=== PATIENT | female | born 1975 | race Two or more races ===

== ENCOUNTER → 2024-10-14 | Outpatient (CLI) | payer OTHER, SELFPAY ==
--- NOTE | 2024-10-14 14:00 | XR_ITS ---
Examination: Screening digital mammography, bilateral Computer aided detection 3-D breast Tomosynthesis, bilateral Date and time of exam: October 14, 2024 at 1341 hours Compared to mammograms dating to January 20, 2021 Indication: Screening Technique: Nonmagnified MLO, CC views of the breasts to been obtained, reconstructed from 3-D Tomosynthesis images. R2 computer aided detection program utilized for evaluation of suspicious masses and/or abnormal calcifications. 3-D Tomosynthesis images obtained. Findings: The breasts are heterogeneously dense, which may obscure small masses 10 mm focal asymmetry inner left breast CC view 5.4 cm from the nipple Impression: BI-RADS Category 0: Incomplete: Need additional imaging evaluation 10 mm focal asymmetry inner left breast CC view, 5.4 cm the nipple Recommend follow-up spot tomographic views upper quadrant left breast, bilateral breast sonography to complete the workup
== END | disposition home or self-care (01) ==
LOC: CDIM 13:35
PROVIDERS: Referring Provider Physician Assistant; Visit Provider Physician Assistant
DX: Z12.31 Encounter for screening mammogram for malignant neoplasm of breast (principal); N64.89 Other specified disorders of breast
CPT/HCPCS: 77063; 77067

== ENCOUNTER → 2024-12-01 | Outpatient (CLI) | payer OTHER, SELFPAY ==
--- NOTE | 2024-12-01 08:30 | XR_ITS ---
Examination: Breast ultrasound, unilateral, left completely Date and time of exam: December 01, 2024 0823 hours INDICATIONS: Mammogram October 14, 2024 10 mm focal asymmetry inner left breast CC view Technique: Real-time urrutia scale ultrasonographic imaging performed left breast including all 4 quadrants as well as nipple retroareolar and axillary region. Findings: 10 x 6 mm nodule left breast 2:00 position marginated IMPRESSION: BI-RADS Category 3: Probably benign findings Recommend additional six-month follow-up left breast sonogram to document stability at 2:00 nodule described above
--- NOTE | 2024-12-01 09:00 | XR_ITS ---
Examination: Diagnostic digital mammography, unilateral, left Computer aided detection 3-D breast Tomosynthesis, unilateral Date and time of exam: 12/01/2024, 8:17 AM Comparisons: May 2021 through October 2024 Indications: Further evaluation of abnormality seen on recent screening exam. Technique: Nonmagnified MLO, CC views of the left breast have been obtained, reconstructed from 3-D Tomosynthesis images. R2 computer aided detection program utilized for evaluation of suspicious masses and/or abnormal calcifications. 3-D Tomosynthesis images obtained. Technologist: Findings: The breasts are heterogeneously dense, which may obscure small masses. No evidence of abnormal masses or suspicious calcifications. The previously described abnormality does not persist on spot compression views and represents superimposition of normal fibroglandular tissue. Impression: BI-RADS category 1: Negative findings (within normal) Recommend 1 year follow-up mammogram
== END | disposition home or self-care (01) ==
LOC: CDIM 08:02
PROVIDERS: PCP Family Medicine; Referring Provider Family Medicine; Visit Provider Family Medicine
DX: R92.312 Mammographic fatty tissue density, left breast (principal); N63.21 Unspecified lump in the left breast, upper outer quadrant
CPT/HCPCS: 76641; 77061; 77065; G0279